=== PATIENT | female | born 1990 | race Caucasian/White ===

== ENCOUNTER 2016-10-30 22:56 | Emergency (ER) | payer BC ==
[2016-10-31] MEDS ORDERED: ONDANSETRON 4 MG TAB.RAPDIS PO ONE (01:06)
[2016-10-31] MEDS ORDERED: HYDROMORPHONE HCL INJ/PF 2 MG/ML AMPULE IM ONE (01:06)
[2016-10-31] MEDS ORDERED: DIPH/PERTUSS(ACELL)/TETANUS VAC/PF 0.5 ML SYR (>=10YO) IM ONE (01:06)
[2016-10-31] MEDS ORDERED: AMOXICILLIN TRIHYDRATE 500 MG CAPSULE PO ONE (01:09)
[2016-10-31] MEDS ORDERED: AMOXICILLIN TR/POT CLAVULANATE 500-125 MG TAB PO ONE (01:09)
--- NOTE | 2016-10-31 01:15 | ER Document Report ---
ED Animal Bite - General Chief Complaint: Dog Bite Stated Complaint: FACIAL INJURY,DOG BITE Notes: Patient is a 26 year old female that comes emergency department for chief complaint of dog bite, patient was interacting with her friends bowl when the dog bit her in the face causing a laceration to the left upper lip extending into the nose and also over the right cheek. Patient is not up-to-date on her tetanus. Dog is reportedly up-to-date on all its shots. TRAVEL OUTSIDE OF THE [place] IN LAST 30 DAYS: No - Related Data Allergies/Adverse Reactions: sulfamethoxazole [From ] Allergy (Verified 11/01/11 15:50) sulfite Allergy (Verified 03/14/16 05:42) trimethoprim [From ] Allergy (Verified 11/01/11 15:50) Past Medical History - General Information source: Patient, Relative - Social History Smoking Status: Never Smoker Frequency of alcohol use: None Lives with: Family Family History: Reviewed & Not Pertinent Patient has suicidal ideation: No Patient has homicidal ideation: No - Medical History Medical History: Negative Renal/ Medical History: Denies: Hx Peritoneal Dialysis Surgical Hx: Negative - Immunizations Immunizations up to date: Yes Hx Diphtheria, Pertussis, Tetanus Vaccination: Yes Review of Systems - Review of Systems Constitutional: No symptoms reported EENT: See HPI Cardiovascular: No symptoms reported Respiratory: No symptoms reported Gastrointestinal: No symptoms reported Genitourinary: No symptoms reported Female Genitourinary: No symptoms reported Musculoskeletal: No symptoms reported Skin: See HPI Hematologic/Lymphatic: No symptoms reported Neurological/Psychological: No symptoms reported Physical Exam - Vital signs Vitals: Temp Pulse Resp BP Pulse Ox 98.6 F 96 17 121/100 H 99 10/30/16 23:04 10/30/16 23:04 10/30/16 23:04 10/30/16 23:04 10/30/16 23:04 Interpretation: Normal - General General appearance: Alert, Anxious In distress: Mild - HEENT Head: Normocephalic, Atraumatic Eyes: Normal Conjunctiva: Normal Extraocular movements intact: Yes Eyelashes: Normal Pupils: PERRL Ears: Normal External canal: Normal Tympanic membrane: Normal Sinus: Normal Mouth/Lips: Other - Large laceration, extending from the top right vermilion border crossing over to the other side of the nose and extending to the septum, full-thickness. Tiny laceration just above the right upper lip. Pharynx: Normal Neck: Normal - Respiratory Respiratory status: No respiratory distress Chest status: Nontender Breath sounds: Normal Chest palpation: Normal - Cardiovascular Rhythm: Regular Heart sounds: Normal auscultation Murmur: No - Abdominal Inspection: Normal Distension: No distension Bowel sounds: Normal Tenderness: Nontender Organomegaly: No organomegaly - Back Back: Normal, Nontender - Extremities General upper extremity: Normal inspection, Nontender, Normal color, Normal ROM , Normal temperature General lower extremity: Normal inspection, Nontender, Normal color, Normal ROM , Normal temperature, Normal weight bearing. No: Jolanta's sign - Neurological Neuro grossly intact: Yes Cognition: Normal Orientation: AAOx4 Marcelina Coma Scale Eye Opening: Spontaneous Marcelina Coma Scale Verbal: Oriented Marcelina Coma Scale Motor: Obeys Commands Marcelina Coma Scale Total: 15 Speech: Normal Motor strength normal: LUE, RUE, LLE, RLE Sensory: Normal - Psychological Associated symptoms: Normal affect, Normal mood - Skin Skin Temperature: Warm Skin Moisture: Dry Skin Color: Normal Skin irregularity: Laceration - Jagged wound over the right zygomatic area about 2 cm in length Course - Re-evaluation Re-evalutation: Concern because of deep upper lip wound extending into the left nasal passage and towards the septum. Patient declines an IV, given Dilaudid, tetanus, Augmentin. Page sent to plastic surgery, Dr. Bear. Dr. Bear called back, spoke to him, sent pictures, he states that he will come to see the patient. Patient given Betadine cleansing twice, wound over right zygomatic area repaired. Dr. Bear in to see the patient, performing the repair. - Vital Signs Vital signs: Temp Pulse Resp BP Pulse Ox 98.6 F 96 17 121/100 H 99 10/30/16 23:04 10/30/16 23:04 10/30/16 23:04 10/30/16 23:04 10/30/16 23:04 Procedures - Laceration/Wound Repair right zygomatic area Wound length (cm): 2 Wound's Depth, Shape: Irregular Laceration pre-procedure: Sterile PPE donned, Sterile drapes applied, Other - Surgical clinic Anesthetic type: Other - l.e.t. Wound explored: Clean, No foreign body removed Irrigated w/ Saline (mLs): 30 Wound Repaired With: Sutures Suture Size/Type: 5:0, Nylon Number of Sutures: 6 Layer Closure?: No Post-procedure wound care: Sterile dressing applied Post-procedure NV exam normal: Yes Complications: No Discharge - Discharge Clinical Impression: Dog bite Qualifiers: Encounter type: initial encounter Qualified Code(s): W54.0XXA - Bitten by dog, initial encounter Facial laceration Qualifiers: Encounter type: initial encounter Qualified Code(s): S01.81XA - Laceration without foreign body of other part of head, initial encounter Condition: Stable Disposition: HOME, SELF-CARE Instructions: Tetanus Immunization Given (OM) Additional Instructions: Your tetanus has been updated. Take Augmentin antibiotic as directed, keep wounds clean, clean gently with soap and water, dab dry, avoid soaking. Chief thin film of antibiotic dressing over the wound. Follow-up with Dr. Bear (call office, see referral). Return to the emergency department for any concerning symptoms including redness , swelling, pus drainage, fever, etc. Prescriptions: Amox Tr/Potassium Clavulanate [Augmentin 875-125 Tablet] 1 tab PO BID 7 Days Oxycodone HCl/Acetaminophen [Percocet 5-325 mg Tablet] 1 - 2 tab PO Q4H PRN #15 tablet PRN Reason: Forms: Return to Work Referrals: LIN BEAR MD [ACTIVE STAFF] - Follow up in 3-5 days
[2016-10-31] MEDS ORDERED: LIDOCAINE 4%/TETRACAINE 0.5%/EPI 0.18% 5 ML TOPICAL SOLN TOP ONE (02:50)
[2016-10-31] MEDS ORDERED: LIDOCAINE 1%/EPINEPHRINE INJ 20 ML VIAL INJ ONE (04:05)
[2016-10-31] MEDS ORDERED: SODIUM BICARBONATE 8.4% INJ 50 MEQ/50 ML DISP.SYRIN IV ONE (04:51)
[2016-10-31 08:18] VITALS: BP 124/79
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
== END 2016-10-31 08:17 | disposition home or self-care (01) ==
LOC: ER 22:56
PROC: 0HQ1XZZ Repair Face Skin, External Approach (ICD-10-PCS; principal; 2016-10-30)
PROC: 0HX1XZZ Transfer Face Skin, External Approach (ICD-10-PCS; 2016-10-30)
PROC: 0CQ0XZZ Repair Upper Lip, External Approach (ICD-10-PCS; 2016-10-30)
DX: S01.511A Laceration without foreign body of lip, initial encounter (principal); S01.21XA Laceration without foreign body of nose, initial encounter; S01.81XA Laceration without foreign body of other part of head, initial encounter; W54.0XXA Bitten by dog, initial encounter; Z23 Encounter for immunization; Z88.3 Allergy status to other anti-infective agents
CPT/HCPCS: 99283; 96372; 90471; 90715; 14060; 12011 ×2; S0119; J3490 ×3; J1170

== ENCOUNTER 2017-11-18 20:59 | Emergency (ER) | payer OTHER, BC ==
[2017-11-18] MEDS ORDERED: KETOROLAC TROMETHAMINE INJ/PF 30 MG/1 ML SDV IV ONE (21:25)
[2017-11-18] MEDS ORDERED: LIDOCAINE 1% INJ-PF (10 MG/ML) 30 ML SDV INJ ONE (21:25)
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
[2017-11-19 00:07] VITALS: BP 116/79
== END 2017-11-19 00:06 | disposition home or self-care (01) ==
LOC: ER 20:59
PROC: 0HQEXZZ Repair Left Lower Arm Skin, External Approach (ICD-10-PCS; principal; 2017-11-18)
DX: S51.022A Laceration with foreign body of left elbow, initial encounter (principal); V43.52XA Car driver injured in collision with other type car in traffic accident, initial encounter; Z88.3 Allergy status to other anti-infective agents
CPT/HCPCS: 99283; 96374; 73080; 12002; J3490; J1885

== ENCOUNTER 2017-11-22 13:19 | Emergency (ER) | payer OTHER, BC ==
[2017-11-22] MEDS ORDERED: OXYCODONE-ACETAMINOPHEN 5-325 MG TABLET PO ONE (14:23)
[2017-11-22] MEDS ORDERED: FENTANYL CITRATE INJ/PF 100 MCG/2 ML AMPUL IV ONE (14:28)
[2017-11-22] MEDS ORDERED: LIDOCAINE 1% INJ-PF (10 MG/ML) 30 ML SDV INJ ONE (14:30)
[2017-11-22] MEDS ORDERED: CLINDAMYCIN 600 MG/D5W RTU 600 MG/50 ML RTUPB IV ONE (14:33)
--- NOTE | 2017-11-22 14:41 | ER Document Report ---
ED Wound - General Chief Complaint: Wound Recheck Stated Complaint: WOUND CHECK Time Seen by Provider: 11/22/17 14:03 Mode of Arrival: Ambulatory Information source: Patient Notes: 27-year-old female presents to ED for wound check on her left arm and elbow. The left arm and elbow is swollen painful and discolored. She states that some of the redness has decreased since yesterday but it is still very painful and draining thick drainage. States there is no way she could go back to work today. TRAVEL OUTSIDE OF THE [place] IN LAST 30 DAYS: No - HPI Patient complains to provider of: Wound infection Occurred: Other - 11/18/2017 Onset/Duration: Sudden, Worse Quality of pain: Pressure, Sharp, Stabbing, Throbbing Severity: Moderate Pain Level: 3 Context: Injury Skin Color: Erythema, Ecchymosis Sensations intact: Yes Associated Symptoms: Drainage, Redness, Swelling - Related Data Allergies/Adverse Reactions: sulfamethoxazole [From Mayra] Allergy (Verified 11/22/17 13:22) sulfite Allergy (Verified 11/22/17 13:22) trimethoprim [From Mayra] Allergy (Verified 11/22/17 13:22) Past Medical History - General Information source: Patient - Social History Smoking Status: Never Smoker Cigarette use (# per day): No Chew tobacco use (# tins/day): No Smoking Education Provided: No Frequency of alcohol use: None Drug Abuse: None Lives with: Family Family History: Reviewed & Not Pertinent Patient has suicidal ideation: No Patient has homicidal ideation: No - Past Medical History Cardiac Medical History: Reports: None Pulmonary Medical History: Reports: None EENT Medical History: Reports: None Neurological Medical History: Reports: None Endocrine Medical History: Reports: None Renal/ Medical History: Reports: None Malignancy Medical History: Reports: None GI Medical History: Reports: None Musculoskeltal Medical History: Reports None Skin Medical History: Reports Hx Cellulitis Psychiatric Medical History: Reports: None Traumatic Medical History: Reports: None Infectious Medical History: Reports: None Surgical Hx: Negative Past Surgical History: Reports: None - Immunizations Immunizations up to date: Yes Hx Diphtheria, Pertussis, Tetanus Vaccination: Yes Review of Systems - Review of Systems Notes: Constitutional: [PRESENT: as per HPI. ABSENT: chills, fever(s), headache(s), weight gain, weight loss] Eyes: [ABSENT: visual disturbances] Ears: [ABSENT: hearing changes] Cardiovascular: [ABSENT: chest pain, dyspnea on exertion, edema, orthropnea, palpitations] Respiratory: [ABSENT: cough, hemoptysis] Gastrointestinal: [ABSENT: abdominal pain, constipation, diarrhea, hematemesis, hematochezia, nausea, vomiting] Genitourinary: [ABSENT: dysuria, hematuria] Musculoskeletal: Painful swollen red left elbow, redness and swelling around the laceration. Integumentary: [ABSENT: rash, wounds] red swollen painful left elbow around the laceration that was sutured on 11/18/2017 Neurological: [ABSENT: abnormal gait, abnormal speech, confusion, dizziness, focal weakness, syncope] Psychiatric: [ABSENT: anxiety, depression, homicidal ideation, suicidal ideation ] Endocrine: [ABSENT: cold intolerance, heat intolerance, menstrual abnormalities , polydipsia, polyuria] Hematologic/Lymphatic: [ABSENT: easy bleeding, easy bruising, lymphadenopathy] Physical Exam - Vital signs Vitals: Temp Pulse Resp BP Pulse Ox 98.8 F 78 14 116/58 L 99 11/22/17 13:30 11/22/17 13:30 11/22/17 13:30 11/22/17 13:30 11/22/17 13:30 - Notes Notes: PHYSICAL EXAMINATION: GENERAL: Well-appearing, well-nourished and in no acute distress. HEAD: Atraumatic, normocephalic. EYES: Pupils equal round and reactive to light, extraocular movements intact, conjunctiva are normal. ENT: Nares patent, oropharynx clear without exudates. Moist mucous membranes. NECK: Normal range of motion, supple without lymphadenopathy LUNGS: Breath sounds clear to auscultation bilaterally and equal. No wheezes rales or rhonchi. HEART: Regular rate and rhythm without murmurs ABDOMEN: Soft, nontender, nondistended abdomen. No guarding, no rebound. No masses appreciated. Female : deferred Musculoskeletal: Swollen red left elbow very tender to touch. NEUROLOGICAL: Cranial nerves grossly intact. Normal speech, normal gait. Normal sensory, motor exams PSYCH: Normal mood, normal affect. SKIN: Erythematous swollen tight skin around the laceration that was sutured on 11/18/2017. Skin extremely tender to touch. Purulent drainage expressed from the suture line. Course - Re-evaluation Re-evalutation: 11/22/17 16:[address] Colunga for the infected laceration. He stated that the last 2 sutures needed to be removed the site needed to be irrigated the patient needed to be given clindamycin IV x-ray needed to be completed and the wound need to be irrigated after wound culture was received. Consulted Dr. Elizondo per Dr. Colunga's request. Dr. Elizondo stated that patient needed to get the antibiotics clindamycin and Rocephin that has already been ordered to the prescription for pain medication and see him in his office first thing in the morning. - Vital Signs Vital signs: Temp Pulse Resp BP Pulse Ox 98.9 F 86 18 121/78 100 11/22/17 17:34 11/22/17 17:34 11/22/17 17:34 11/22/17 17:34 11/22/17 17:34 - Laboratory Result Diagrams: 11/22/17 15:25 Laboratory results interpreted by me: 11/22/17 15:25 WBC 10.6 H RBC 5.36 H RDW 15.8 H - Diagnostic Test Radiology reviewed: Image reviewed, Reports reviewed Discharge - Discharge Clinical Impression: infected left elbow laceration Condition: Stable Disposition: HOME, SELF-CARE Additional Instructions: Infections You have an infection. This is due to bacteria, which can enter through any break in the skin, or even through an irritated hair follicle. Untreated, infections will usually worsen. Antibiotics are required. Usually, warm packs or warm soaks, and elevation of the infected area are recommended. You should start getting better within 24 to 36 hours. Most infections respond quickly to the right medication. Follow-up care is important, however, to check for abscess (boil) formation, unsuspected foreign body, or resistant infection. If you develop fever, chills, or if the area of infection is becoming rapidly more swollen or painful, call the doctor at once. Your x-ray results show multiple radiopaque foreign bodies in your wound to your left elbow. These foreign bodies will need to be removed. I have opened the end of your laceration and removed 2 of the stitches irrigated the area and given you IV Rocephin and clindamycin in the emergency room. I will send you home with prescription for Percocet. You will need to follow-up with orthopedics first thing in the morning to establish a treatment plan for this wound. You need to follow-up. Please do not decide not to follow-up this infection can become a lot worse if not properly treated I.V. ANTIBIOTICS: You have been given an antibiotic by vein. This is done for more serious infections. The IV antibiotics are usually followed by pills. Common side effects of antibiotics include nausea, intestinal cramping, or diarrhea. These are very unusual following a shot. Women may develop vaginal yeast infections, and babies can get yeast ( thrush) in the mouth following the use of antibiotics. Contact your physician if you develop significant side effects from this medication. Allergy to this antibiotic can result in hives, wheezing, faintness, or itching. If symptoms of allergy occur, call the doctor at once. If further IV doses of antibiotic are planned, an IV lock may have been placed in your vein. This provides a way to give periodic IV medications ( without starting a new IV) while you go about your activities. Don't allow the IV site to be bumped. Don't touch the IV needle. If the tape comes loose, apply more tape to secure the IV. Don't get the IV area wet. If bleeding occurs, remove the bandage. If blood is coming from where the plastic needle enters the skin, apply pressure until the bleeding has stopped. If the blood is coming from the IV cap, grasp the cap with one hand and grasp the wide part of the IV needle with the other hand, then gently twist (clockwise ) until the cap is tight. If bleeding continues, return for examination. Call the doctor or come back if you develop chills or fever, or if the IV area becomes swollen, tender, or red. Clindamycin You have been given a prescription for the antibiotic clindamycin. It is often prescribed for infections in the mouth, such as dental infections or abscesses, and for skin infections due to MRSA. It's important that you take all the medication, unless instructed otherwise by your physician. Failure to complete the entire course can result in relapse of your condition. Common side effects of antibiotics include nausea, intestinal cramping, or diarrhea. Women may develop vaginal yeast infections, and babies can get yeast (thrush) in the mouth following the use of antibiotics. Contact your physician if you develop significant side effects from this medication. Allergy to this antibiotic can result in hives, wheezing, faintness, or itching. If symptoms of allergy occur, stop the medication and call the doctor. Rocephin You have been given an injection of an antibiotic called Rocephin ( ceftriaxone). Sometimes the injection must be combined with antibiotic pills. For some infections, such as an uncomplicated ear infection, Rocephin provides all the antibiotic that's needed. The antibiotic will be in your body for about two days. For serious infections, we usually repeat doses of Rocephin daily. Side effects are very unusual following a shot. Women may develop vaginal yeast infections, and babies can get yeast (thrush) in the mouth following the use of antibiotics. Contact your physician if you have symptoms with this medication. Allergy to this antibiotic can result in hives, wheezing, faintness, or itching. If symptoms of allergy occur, call the doctor at once. Oral Narcotic Medication You have been given a prescription for pain control. This medication is a narcotic. It's best taken with food, as nausea can result if taken on an empty stomach. Don't operate machinery or drive within six hours of taking this medication. Do not combine this medicine with alcohol, or with any medication which can cause sedation (such as cold tablets or sleeping pills) unless you get permission from the physician. Narcotics tend to cause constipation. If possible, drink plenty of fluids and eat a diet high in fiber and fruits. FOLLOW-UP CARE: If you have been referred to a physician for follow-up care, call the physician s office for an appointment as you were instructed or within the next two days. If you experience worsening or a significant change in your symptoms, notify the physician immediately or return to the Emergency Department at any time for re-evaluation. Prescriptions: Oxycodone HCl/Acetaminophen [Percocet 5-325 mg Tablet] 1 tab PO Q6HP PRN #15 tablet PRN Reason: Clindamycin HCl 300 mg PO Q6 #28 capsule Forms: Return to Work Referrals: JASMIN ELIZONDO MD [ACTIVE STAFF] - Follow up tomorrow
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
[2017-11-22 15:45] LABS: ABSOLUTE EOSINOPHILS # (AUTO) 0.1 10^3/uL (0.0-0.6); ABSOLUTE MONOCYTES (AUTO) 0.8 10^3/uL (0.1-1.4); ABSOLUTE NEUT (AUTO) 7.7 10^3/uL (1.7-8.2); BASOPHILS % (AUTO) 0.4 % (0-2); EOSINOPHILS % (AUTO) 0.5 % (0-6); HEMATOCRIT 43.8 % (36.0-47.0); HEMOGLOBIN 14.6 g/dL (12.0-15.5); LYMPHOCYTES % (AUTO) 19.2 % (13-45); MEAN CORPUSCULAR HEMOGLOBIN 27.3 pg (27.0-33.4); MEAN CORPUSCULAR HGB CONC 33.4 g/dL (32.0-36.0); MEAN CORPUSCULAR VOLUME 82 fl (80-97); MONOCYTES % (AUTO) 7.7 % (3-13); PLATELET COUNT 274 10^3/uL (150-450); RED BLOOD COUNT 5.36 10^6/uL (3.72-5.28); RED CELL DISTRIBUTION WIDTH 15.8 % (11.5-14.0); SEGMENTED NEUTROPHILS % (AUTO) 72.2 % (42-78); TOTAL CELLS COUNTED % (AUTO) 100 %; WHITE BLOOD COUNT 10.6 10^3/uL (4.0-10.5)
[2017-11-22] MEDS ORDERED: CEFTRIAXONE 1 GM/D5W RTU 1 GM/50 ML RTUPB IV ONE (16:21)
[2017-11-22] MEDS ORDERED: CEFTRIAXONE INJ 1000 MG VIAL IV ONE (16:48)
[2017-11-22 17:43] VITALS: BP 121/78
== END 2017-11-22 17:35 | disposition home or self-care (01) ==
LOC: ER 13:19
DX: S51.012D Laceration without foreign body of left elbow, subsequent encounter (principal); L08.9 Local infection of the skin and subcutaneous tissue, unspecified; V49.9XXD Car occupant (driver) (passenger) injured in unspecified traffic accident, subsequent encounter; Z88.1 Allergy status to other antibiotic agents
CPT/HCPCS: 99283; 96375; 96365; 96367; 36415; 87070; 87205; 85025; 73070; J3010; J3490; J0696

== ENCOUNTER 2018-09-04 14:32 | Emergency (ER) | payer BC, MEDICAID, OTHER ==
--- NOTE | 2018-09-04 16:41 | ER Document Report ---
ED ENT - General Chief Complaint: Cough Stated Complaint: BREATHING DIFFICULTY Time Seen by Provider: 09/04/18 16:02 Mode of Arrival: Ambulatory Information source: Patient Notes: 28-year-old female presented to ED for cough cold congestion x2 days. Patient states her mother told her she had to come to the emergency room to get checked out because she is 10 weeks . Patient states she has been taken Tylenol and Benadryl but did not know anything else that she could take. Patient is alert and oriented respirations regular and unlabored speaking in full sentences walks with a even steady gait. TRAVEL OUTSIDE OF THE [place] IN LAST 30 DAYS: No - HPI Patient complains to provider of: Nose problem Onset: Other - 2 days Onset/Duration: Intermittent Quality of pain: Achy Severity: Mild Pain Level: 1 Context: Recent Illness Location of pain: Nose Associated symptoms: Runny nose, Sinus drainage Similar symptoms previously: Yes Recently seen / treated by doctor: No - Related Data Allergies/Adverse Reactions: sulfamethoxazole [From Mayra] Allergy (Verified 09/04/18 14:34) sulfite Allergy (Verified 09/04/18 14:34) trimethoprim [From Mayra] Allergy (Verified 09/04/18 14:34) Past Medical History - General Information source: Patient - Social History Smoking Status: Former Smoker Cigarette use (# per day): No Chew tobacco use (# tins/day): No Smoking Education Provided: No Frequency of alcohol use: None Drug Abuse: None Occupation: Field Case Manager Lives with: Alone Family History: Reviewed & Not Pertinent Patient has suicidal ideation: No Patient has homicidal ideation: No - Past Medical History Cardiac Medical History: Reports: None Pulmonary Medical History: Reports: None EENT Medical History: Reports: None Neurological Medical History: Reports: None Endocrine Medical History: Reports: None Renal/ Medical History: Reports: None Malignancy Medical History: Reports: None GI Medical History: Reports: None Musculoskeletal Medical History: Reports None Skin Medical History: Reports Hx Cellulitis Psychiatric Medical History: Reports: None Traumatic Medical History: Reports: None Infectious Medical History: Reports: None Surgical Hx: Negative Past Surgical History: Reports: None - Immunizations Immunizations up to date: Yes Hx Diphtheria, Pertussis, Tetanus Vaccination: Yes Review of Systems - Review of Systems Constitutional: No symptoms reported EENT: Nose congestion, Nose discharge, Sinus pressure, Sinus discharge Cardiovascular: No symptoms reported Respiratory: Cough Gastrointestinal: No symptoms reported Genitourinary: No symptoms reported Female Genitourinary: No symptoms reported Musculoskeletal: No symptoms reported Skin: No symptoms reported Hematologic/Lymphatic: No symptoms reported Neurological/Psychological: No symptoms reported -: Yes All other systems reviewed and negative Physical Exam - Vital signs Vitals: Temp Pulse Resp BP Pulse Ox 98.3 F 88 16 121/82 99 09/04/18 15:12 09/04/18 15:12 09/04/18 15:12 09/04/18 15:12 09/04/18 15:12 Interpretation: Normal - General General appearance: Appears well, Alert General appearance pediatric: Attentiveness normal, Good eye contact - HEENT Head: Normocephalic, Atraumatic Eyes: Normal Pupils: PERRL Ears: Normal External canal: Normal Tympanic membrane: Normal Sinus: Normal Nasal: Swelling, Clear rhinorrhea Mouth/Lips: Normal Mucous membranes: Normal Pharynx: Post nasal drainage. No: Erythema, Exudate Neck: Normal - Respiratory Respiratory status: No respiratory distress Chest status: Nontender Breath sounds: Normal Chest palpation: Normal - Cardiovascular Rhythm: Regular Heart sounds: Normal auscultation Murmur: No - Abdominal Inspection: Normal Distension: No distension Bowel sounds: Normal Tenderness: Nontender Organomegaly: No organomegaly - Back Back: Normal, Nontender - Extremities General upper extremity: Normal inspection, Nontender, Normal color, Normal ROM, Normal temperature General lower extremity: Normal inspection, Nontender, Normal color, Normal ROM, Normal temperature, Normal weight bearing. No: Jolanta's sign - Neurological Neuro grossly intact: Yes Cognition: Normal Orientation: AAOx4 [place] Coma Scale Eye Opening: Spontaneous [place] Coma Scale Verbal: Oriented [place] Coma Scale Motor: Obeys Commands Ped Marcelina Coma Scale Eye Opening: Spontaneous Ped Marcelina Coma Scale Verbal: Age appropriate verbal Ped [place] Coma Scale Motor: Spontaneous Movements Speech: Normal Motor strength normal: LUE, RUE, LLE, RLE Sensory: Normal - Psychological Associated symptoms: Normal affect, Normal mood - Skin Skin Temperature: Warm Skin Moisture: Dry Skin Color: Normal Course - Re-evaluation Re-evalutation: 09/04/18 21:39 Care for upper respiratory infection in a patient with patient. Explained to her she could take Benadryl or Claritin but not Sudafed or Zyrtec. Patient was instructed on use of saline nasal spray and salt and soda solution gargles. Patient was instructed to follow-up with her primary doctor and with [employer]. After performing a Medical Screening Examination, I estimate there is LOW risk for ACUTE CORONARY SYNDROME, RESPIRATORY FAILURE, SEPSIS OR MENINGITIS, thus I consider the discharge disposition reasonable. I have reevaluated this patient multiple times and no significant life threatening changes are noted. The patient and I have discussed the diagnosis and risks, and we agree with discharging home with close follow-up. We also discussed returning to the Emergency Department immediately if new or worsening symptoms occur. We have discussed the symptoms which are most concerning (e.g., changing or worsening pain, trouble swallowing or breathing, neck stiffness, fever) that necessitate immediate return. - Vital Signs Vital signs: Temp Pulse Resp BP Pulse Ox 98 F 87 16 105/74 100 09/04/18 16:40 09/04/18 16:40 09/04/18 16:40 09/04/18 16:40 09/04/18 16:40 Discharge - Discharge Clinical Impression: URI (upper respiratory infection) Qualifiers: URI type: unspecified URI Qualified Code(s): J06.9 - Acute upper respiratory infection, unspecified Condition: Stable Disposition: HOME, SELF-CARE Additional Instructions: UPPER RESPIRATORY ILLNESS: You have a viral infection of the respiratory passages -- a "cold." This common infection causes nasal congestion, drainage, and often sore throat and cough. It is highly contagious. The disease usually lasts about 10 to 14 days. There is no "cure" for the viral infection -- it must run its course. If there is a complication, such as bacterial infection in the nose, sinuses, middle ear, or bronchial tubes, antibiotics may be required. The antibiotics won't affect the virus. Drink plenty of fluids. A humidifier may help. An expectorant medication or decongestant may make you more comfortable. Use acetaminophen or ibuprofen for fever or aches. See the doctor if fever persists over two days, if there is any significant worsening of your symptoms, or if you simply fail to improve as expected. COUGH-SUPPRESSANT & EXPECTORANT MEDICATION: You are to use a cough medication as needed for relief of symptoms. This medicine is a combination of an expectorant (to make the mucous thinner and more easily "coughed up") and a cough suppressant (to reduce the frequency of coughing). The cough-suppressant medicine is related to narcotics. You may experience mild nausea and sleepiness. Some patients who are very sensitive to narcotics may have stomach pain from this medicine. Taking the medicine with food reduces these side effects. Do not drive or work with machinery until you know how this medicine affects you. The expectorant should have no side effects. Iodine-containing expectorants (such as organidin) should not be taken by persons with active thyroid disease unless approved by your doctor. Call the doctor if you develop shortness of breath, hives, rash, itching, lightheadedness, or severe nausea and vomiting. You can take Claritin for your cough cold congestion symptoms this is safe in . You cannot take Claritin-D as this has Sudafed which is not safe in . USE OF ACETAMINOPHEN (Tylenol): Acetaminophen may be taken for pain relief or fever control. It's much safer than aspirin, offering a wider range of "safe" dosages. It is safe during . Some brand names are Tylenol, Panadol, Datril, Anacin 3, Tempra, and Liquiprin. Acetaminophen can be repeated every four hours. The following are maximum recommended dosages: >89 pounds or adults 650 mg to 900 mg Acetaminophen can be repeated every four hours. Maximum dose not to exceed 4000 mg a day. Salt and soda solution 1 quart of water 1 tablespoon of salt 1 teaspoon of baking soda Mixed 3 ingredients together and boil for 1 minute Placed in a covered quart jar Use 1/2 ounce of cold solution to gargle 3 times a day FOLLOW-UP CARE: If you have been referred to a physician for follow-up care, call the physicians office for an appointment as you were instructed or within the next two days. If you experience worsening or a significant change in your symptoms, notify the physician immediately or return to the Emergency Department at any time for re-evaluation. Forms: Return to Work Referrals: [facility] [Provider Group] - Follow up as needed
[2018-09-04 16:54] VITALS: BP 105/74
== END 2018-09-04 16:43 | disposition home or self-care (01) ==
LOC: ER 14:32
DX: O99.511 Diseases of the respiratory system complicating pregnancy, first trimester (principal); J06.9 Acute upper respiratory infection, unspecified; J34.89 Other specified disorders of nose and nasal sinuses; O26.891 Other specified pregnancy related conditions, first trimester; R05 Cough; R09.82 Postnasal drip; R09.81 Nasal congestion; Z3A.10 10 weeks gestation of pregnancy; Z87.891 Personal history of nicotine dependence; Z88.1 Allergy status to other antibiotic agents
CPT/HCPCS: 99283

== ENCOUNTER 2019-04-24 20:33 | Inpatient (IN) | payer MEDICAID ==
[2019-04-24] MEDS ORDERED: RINGERS SOLUTION,LACTATED 1,000 ML IV ONE (21:07)
[2019-04-24] MEDS ORDERED: ACETAMINOPHEN 325 MG TABLET PO ONE (21:08)
[2019-04-24 21:10] LABS: ABSOLUTE EOSINOPHILS # (AUTO) 0.1 10^3/uL (0.0-0.6); ABSOLUTE LYMPHOCYTES (AUTO) 1.3 10^3/uL (0.5-4.7); ABSOLUTE MONOCYTES (AUTO) 0.5 10^3/uL (0.1-1.4); ABSOLUTE NEUT (AUTO) 8.7 10^3/uL (1.7-8.2); BASOPHILS % (AUTO) 0.3 % (0-2); EOSINOPHILS % (AUTO) 0.7 % (0-6); HEMATOCRIT 30.9 % (36.0-47.0); HEMOGLOBIN 10.3 g/dL (12.0-15.5); LYMPHOCYTES % (AUTO) 12.3 % (13-45); MEAN CORPUSCULAR HEMOGLOBIN 28.9 pg (27.0-33.4); MEAN CORPUSCULAR HGB CONC 33.3 g/dL (32.0-36.0); MEAN CORPUSCULAR VOLUME 87 fl (80-97); MONOCYTES % (AUTO) 4.9 % (3-13); PLATELET COUNT 311 10^3/uL (150-450); RED BLOOD COUNT 3.56 10^6/uL (3.72-5.28); RED CELL DISTRIBUTION WIDTH 15.7 % (11.5-14.0); SEGMENTED NEUTROPHILS % (AUTO) 81.8 % (42-78); TOTAL CELLS COUNTED % (AUTO) 100 %; WHITE BLOOD COUNT 10.6 10^3/uL (4.0-10.5)
[2019-04-24] MEDS ORDERED: DOXYCYCLINE HYCLATE 100 MG TABLET PO ONE (21:23)
[2019-04-24] MEDS ORDERED: AMPICILLIN SOD/SULBACTAM 3 GM VIAL IV ONE (21:23)
[2019-04-24 21:32] LABS: ANION GAP 12 (5-19); BLOOD UREA NITROGEN 9 mg/dL (7-20); CALCIUM 9.2 mg/dL (8.4-10.2); CARBON DIOXIDE 26 mmol/L (22-30); CHLORIDE 99 mmol/L (98-107); GLUCOSE 113 mg/dL (75-110); POTASSIUM 3.8 mmol/L (3.6-5.0)
--- NOTE | 2019-04-24 21:34 | ER Document Report ---
ED General - General Chief Complaint: Vaginal Bleeding Stated Complaint: VAGINAL BLEEDING Time Seen by Provider: 04/24/19 20:47 Primary Care Provider: DIXON SHIELDS MD [Primary Care Provider] - Follow up as needed Mode of Arrival: Ambulatory Information source: Patient, Relative, [facility] Records Notes: 28-year-old female presents with complaint of vaginal bleeding. Patient delivered on April 15, 2019 here at [facility]. She said it was a prolonged delivery which required vacuum extraction of the baby. She reports that afterwards she did experience significant bleeding which required her to have multiple transfusions. She does report a grade 2 vaginal laceration which was repaired. Patient reports that she has had mild bleeding up until today wh en she began passing large clots and soaking through more than 1 pad per hour. She denies any abdominal pain, dysuria, fever, chills, nausea, vomiting. Patient was unaware that she had a temperature of 103.3 TRAVEL OUTSIDE OF THE [place] IN LAST 30 DAYS: No - HPI Onset: This morning Onset/Duration: Sudden, Worse Quality of pain: Achy Severity: Mild Associated symptoms: Fever. denies: Chest pain, Chills, Nausea, Vomiting, Shortness of breath Exacerbated by: Denies Relieved by: Denies Similar symptoms previously: No Recently seen / treated by doctor: Yes - Related Data Allergies/Adverse Reactions: sulfamethoxazole [From Mayra] Allergy (Verified 04/14/19 12:27) sulfite Allergy (Verified 04/14/19 12:27) trimethoprim [From Mayra] Allergy (Verified 04/14/19 12:27) Past Medical History - General Information source: Patient, Relative, [facility] Records - Social History Smoking Status: Never Smoker Frequency of alcohol use: None Drug Abuse: None Lives with: Family, Spouse/Significant other Family History: Reviewed & Not Pertinent Patient has suicidal ideation: No Patient has homicidal ideation: No - Medical History Medical History: Negative Renal/ Medical History: Denies: Hx Peritoneal Dialysis Skin Medical History: Reports Hx Cellulitis - Immunizations Immunizations up to date: Yes Hx Diphtheria, Pertussis, Tetanus Vaccination: Yes Review of Systems - Review of Systems Notes: REVIEW OF SYSTEMS: CONSTITUTIONAL : Denies fever, chills, or sweats. Denies recent illness. Denies weight loss, + recent hospitalizations. EENT: Denies visual changes, eye pain. Denies sore throat, oral lesions, di fficulty swallowing. CARDIOVASCULAR: Denies chest pain. Denies palpitations. Denies lower extremity edema. RESPIRATORY: Denies cough. Denies shortness of breath, wheezing. GASTROINTESTINAL: Denies abdominal distention. Denies nausea, vomiting, or diarrhea. Denies blood in vomitus, stools, or per rectum. Denies black, tarry stools. Denies constipation. GENITOURINARY: Denies difficulty urinating, painful urination, frequency, blood in urine, or vaginal discharge. MUSCULOSKELETAL: Denies back or neck pain or stiffness. Denies joint pain or swelling. SKIN: Denies rash, lesions or sores. HEMATOLOGIC : Denies easy bruising or bleeding. LYMPHATIC: Denies swollen glands. NEUROLOGICAL: Denies confusion or altered mental status. Denies loss of consciousness. Denies dizziness or lightheadedness. Denies headache. Denies weakness or paralysis. Denies problems difficulty with ambulation, slurred speech. Denies sensory loss, numbness, or tingling. Denies seizures. PSYCHIATRIC: Denies anxiety or stress. Denies depression, suicidal ideation, or homicidal ideation. Denies visual or auditory hallucinations. Physical Exam - Vital signs Vitals: Temp Pulse Resp BP 100.3 F 138 H 20 128/81 H 04/24/19 20:39 04/24/19 20:39 04/24/19 20:39 04/24/19 20:39 - Notes Notes: PHYSICAL EXAMINATION: GENERAL: Well-appearing, well-nourished and in no acute distress. HEAD: Atraumatic, normocephalic. EYES: Pupils equal round and reactive to light, extraocular movements intact, conjunctiva are normal. ENT: Nares patent, oropharynx clear without exudates. Moist mucous membranes. NECK: Normal range of motion, supple without lymphadenopathy LUNGS: Breath sounds clear to auscultation bilaterally and equal. No wheezes rales or rhonchi. HEART: Regular rate and rhythm without murmurs ABDOMEN: Soft, nontender, nondistended abdomen. No guarding, no rebound. No masses appreciated. Female : Musculoskeletal: Normal range of motion, no pitting or edema. No cyanosis. NEUROLOGICAL: Cranial nerves grossly intact. Normal speech, normal gait. Normal sensory, motor exams PSYCH: Normal mood, normal affect. SKIN: Warm, Dry, normal turgor, no rashes or lesions noted. Course - Re-evaluation Re-evalutation: 04/24/19 22:24 Laboratory 04/24/19 04/24/19 20:49 20:49 WBC 10.6 H RBC 3.56 L Hgb 10.3 L Hct 30.9 L MCV 87 MCH 28.9 MCHC 33.3 RDW 15.7 H Plt Count 311 Seg Neutrophils % 81.8 H Lymphocytes % 12.3 L Monocytes % 4.9 Eosinophils % 0.7 Basophils % 0.3 Absolute Neutrophils 8.7 H Absolute Lymphocytes 1.3 Absolute Monocytes 0.5 Absolute Eosinophils 0.1 Absolute Basophils 0.0 Sodium 137.1 Potassium 3.8 Chloride 99 Carbon Dioxide 26 Anion Gap 12 BUN 9 Creatinine 0.73 Est GFR ( Amer) > 60 Est GFR (Non-Af Amer) > 60 Glucose 113 H Calcium 9.2 Pelvis Ultrasound 04/24/19 20:48 IMPRESSION: 1. Thickening and heterogeneity within the endometrium measuring 3.1 cm in greatest dimension. There are foci of possible calcification as well as dirty shadowing which could represent air. There is also increased vascularity. Differential considerations include retained products of conception versus endometritis. Temp Pulse Resp BP Pulse Ox 103.3 F H 138 H 20 128/81 H 04/24/19 21:17 04/24/19 20:39 04/24/19 20:39 04/24/19 20:39 04/24/19 22:31 28-year-old female presents with heavy vaginal bleeding that started this morning. She states that she had a vaginal delivery here at [facility] on April 15, 2019. At that time patient also suffered significant blood loss which required blood transfusions. She states since being home she has had mild bleeding until this morning when she started to pass large clots. She denies knowing that she had a fever of 103. She has no significant abdominal pain nausea or vomiting. She does not appear toxic or dehydrated. She is in no acute distress. CBC shows a mild leukocytosis and a stable anemia. CMP is without electrolyte abnormality. Pelvic ultrasound was obtained and concerning for retained products of conception versus endometritis. Patient was given IV fluids, Unasyn, Tylenol. On reevaluation she is resting comfortably and declines any further pain medication. Urinalysis is pending as well gonorrhea and chlamydia. Urine and blood cultures are pending. I did speak to Dr. Kraft who agrees the patient will require admission. Patient is agreeable to this. - Vital Signs Vital signs: Temp Pulse Resp BP Pulse Ox 103.3 F H 138 H 20 128/81 H 04/24/19 21:17 04/24/19 20:39 04/24/19 20:39 04/24/19 20:39 - Laboratory Result Diagrams: 04/24/19 20:49 04/24/19 20:49 Laboratory results interpreted by me: 04/24/19 04/24/19 20:49 20:49 WBC 10.6 H RBC 3.56 L Hgb 10.3 L Hct 30.9 L RDW 15.7 H Seg Neutrophils % 81.8 H Lymphocytes % 12.3 L Absolute Neutrophils 8.7 H Glucose 113 H - Diagnostic Test Radiology reviewed: Image reviewed, Reports reviewed Discharge - Discharge Clinical Impression: Endometritis, Vaginal bleeding Fever Qualifiers: Fever type: unspecified Qualified Code(s): R50.9 - Fever, unspecified Condition: Good Disposition: ADMITTED INPATIENT Admitting Provider: [facility] Unit Admitted: Post Referrals: DIXON SHIELDS MD [Primary Care Provider] - Follow up as needed
--- NOTE | 2019-04-24 22:10 | RADIOLOGY REPORT (SQ) ---
EXAM DESCRIPTION: US PELVIS COMPLETED DATE/TME: 04/24/2019 20:48 CLINICAL HISTORY: 28 years Female, post heavy bleeding and pain COMPARISON: None. TECHNIQUE: Complete pelvic ultrasound with transabdominal imaging. FINDINGS: Uterus: The uterus measures 12.5 x 8.9 x 9.8 cm. Cervical length of 3.0 cm. Endometrium: There is a heterogeneous predominantly hypoechoic solid appearing area of heterogeneity that has small intermittent foci of high density that produce both clean and dirty posterior shadowing. Shadowing may be caused by calcification however air could also produce this appearance. This region measures approximately 3.1 x 2.6 x 2.7 cm with increased vascularity. Right ovary: Right ovary measures 2.6 x 1.5 x 2.9 cm. Left ovary: The left ovary measures 3.3 x 1.9 x 1.3 cm. Adnexa: No large adnexal masses. Free fluid: No free pelvic fluid. Duplex imaging: Color and spectral Doppler imaging demonstrates blood flow within the ovaries bilaterally. IMPRESSION: 1. Thickening and heterogeneity within the endometrium measuring 3.1 cm in greatest dimension. There are foci of possible calcification as well as dirty shadowing which could represent air. There is also increased vascularity. Differential considerations include retained products of conception versus endometritis.
--- NOTE | 2019-04-24 22:28 | PDOC H&P ---
History of Present Illness Admission Date/PCP: DIXON SHIELDS MD Patient complains of: abdominal pain and vaginal bleeding History of Present Illness: FLACO GROVES is a 28 year old female who had vaginal delivery on 04/15/2019 here and 2nd degree laceration (per notes membranes only ruptured 10 hours. She was GBS negative. Apparently she had a hemorrhage with symptomatic anemia pp and was given 3 units of PRBCs. She denies any other complications. She reports that she was doing well until today when significant increase in bleeding. She is breast feeding and pumping and was not engorged at the time of exam or fever. Past Medical History Gynecological Infection: No Baby 1 Delivery: Spontaneous Vaginal Delivery Medical History: None Cardiac Medical History: Reports: None Pulmonary Medical History: Reports: None EENT Medical History: Reports: None Neurological Medical History: Reports: None Endocrine Medical History: Reports: None Renal/ Medical History: Reports: None Malignancy Medical History: Reports: None GI Medical History: Reports: None Musculoskeltal Medical History: Reports: None Skin Medical History: Reports: None Psychiatric Medical History: Reports: None Traumatic Medical History: Reports: None Infectious Medical History: Reports: None Past Surgical History Past Surgical History: Reports: None Social History Lives with: Family, Spouse/Significant other Smoking Status: Never Smoker - Advance Directive Resuscitation Status: Full Code Family History Family History: Reviewed & Not Pertinent Parental Family History Reviewed: No Children Family History Reviewed: NA Sibling(s) Family History Reviewed.: NA Medication/Allergy Home Medications: Acetaminophen with Codeine [Tylenol #3 Tablet] 1 each PO Q4HP PRN #20 tablet 04/17/19 Docusate Sodium [Colace 100 mg Capsule] 100 mg PO BID capsule 04/17/19 Ferrous Sulfate [Feosol 325 mg Tablet] 325 mg PO BID #60 tablet 04/17/19 Vit/Dha [ Multi + Dha Capsule] 1 cap PO DAILY capsule 04/17/19 Allergies/Adverse Reactions: sulfamethoxazole [From ] Allergy (Verified 04/14/19 12:27) sulfite Allergy (Verified 04/14/19 12:27) trimethoprim [From Mayra] Allergy (Verified 04/14/19 12:27) Review of Systems Constitutional: ABSENT: chills, fever(s), headache(s), weight gain, weight loss Cardiovascular: ABSENT: chest pain, dyspnea on exertion, edema, orthropnea, palpitations Respiratory: ABSENT: cough, hemoptysis Genitourinary: ABSENT: dysuria, hematuria Neurological: ABSENT: abnormal gait, abnormal speech, confusion, dizziness, focal weakness, syncope Physical Exam - Physical Exam Vital Signs: Temp Pulse Resp BP Pulse Ox 103.3 F H 138 H 20 128/81 H 04/24/19 21:17 04/24/19 20:39 04/24/19 20:39 04/24/19 20:39 Intake & Output 04/23/19 04/24/19 04/25/19 06:59 06:59 06:59 Weight 66.2 kg General appearance: PRESENT: no acute distress, well-developed, well-nourished Head exam: PRESENT: atraumatic, normocephalic Respiratory exam: PRESENT: clear to auscultation aldair, symmetrical, unlabored Cardiovascular exam: PRESENT: RRR. ABSENT: diastolic murmur, rubs, systolic murmur GI/Abdominal exam: PRESENT: normal bowel sounds, soft, other - approp ttp pp from recent delivery. ABSENT: distended, guarding, mass, organolmegaly, rebound, tenderness Rectal exam: PRESENT: deferred Extremities exam: PRESENT: full ROM. ABSENT: calf tenderness, clubbing, pedal edema Neurological exam: PRESENT: alert, awake, oriented to person, oriented to place, oriented to time, oriented to situation, CN II-XII grossly intact. ABSENT: motor sensory deficit Psychiatric exam: PRESENT: appropriate affect, normal mood. ABSENT: homicidal ideation, suicidal ideation Skin exam: PRESENT: dry, intact, warm. ABSENT: cyanosis, rash Result Laboratory Results: 04/24/19 20:49 04/24/19 20:49 04/24/19 04/24/19 20:49 20:49 WBC 10.6 H RBC 3.56 L Hgb 10.3 L Hct 30.9 L MCV 87 MCH 28.9 MCHC 33.3 RDW 15.7 H Plt Count 311 Seg Neutrophils % 81.8 H Lymphocytes % 12.3 L Monocytes % 4.9 Eosinophils % 0.7 Basophils % 0.3 Absolute Neutrophils 8.7 H Absolute Lymphocytes 1.3 Absolute Monocytes 0.5 Absolute Eosinophils 0.1 Absolute Basophils 0.0 Sodium 137.1 Potassium 3.8 Chloride 99 Carbon Dioxide 26 Anion Gap 12 BUN 9 Creatinine 0.73 Est GFR ( Amer) > 60 Est GFR (Non-Af Amer) > 60 Glucose 113 H Calcium 9.2 Impressions: Pelvis Ultrasound 04/24/19 20:48 IMPRESSION: 1. Thickening and heterogeneity within the endometrium measuring 3.1 cm in greatest dimension. There are foci of possible calcification as well as dirty shadowing which could represent air. There is also increased vascularity. Differential considerations include retained products of conception versus endometritis. Status: Imported from PACS Assessment & Plan - Diagnosis (1) endometritis Is this a current diagnosis for this admission?: Yes Plan: likely increase in bleeding today is from placental site involution. However, patient has a leukocytosis and fever 103.3 She is well appearing and does not appear septic. Unasyn ordered. Discharge after 24-48hours on abx based on clinical well being. - Time Time Spent: 30 to 50 Minutes Medications reviewed and adjusted accordingly: Yes Anticipated discharge: Home Within: within 48 hours - Inpatient Certification Based on my medical assessment, after consideration of the patient's comorbidities, presenting symptoms, or acuity I expect that the services needed warrant INPATIENT care.: Yes I certify that my determination is in accordance with my understanding of Medicare's requirements for reasonable and necessary INPATIENT services [42 CFR 412.3e].: Yes Medical Necessity: Need for IV Antibiotics
[2019-04-25] MEDS ORDERED: AMPICILLIN SOD/SULBACTAM 3 GM VIAL IV PRN
[2019-04-25 01:51] LABS: CHLAM PCR NOT DETECTED (NOT DETECT)
[2019-04-25] MEDS: AMPICILLIN SODIUM/SULBACTAM NA 3 GM in NORMAL SALINE 100 ML IV SCH ×4 (02:14→23:12)
[2019-04-25 07:32] LABS: ABSOLUTE EOSINOPHILS # (AUTO) 0.1 10^3/uL (0.0-0.6); ABSOLUTE LYMPHOCYTES (AUTO) 1.4 10^3/uL (0.5-4.7); ABSOLUTE MONOCYTES (AUTO) 0.6 10^3/uL (0.1-1.4); ABSOLUTE NEUT (AUTO) 5.8 10^3/uL (1.7-8.2); BASOPHILS % (AUTO) 0.3 % (0-2); EOSINOPHILS % (AUTO) 0.8 % (0-6); HEMATOCRIT 26.4 % (36.0-47.0); HEMOGLOBIN 8.9 g/dL (12.0-15.5); LYMPHOCYTES % (AUTO) 17.4 % (13-45); MEAN CORPUSCULAR HGB CONC 33.8 g/dL (32.0-36.0); MEAN CORPUSCULAR VOLUME 86 fl (80-97); MONOCYTES % (AUTO) 7.7 % (3-13); PLATELET COUNT 226 10^3/uL (150-450); RED BLOOD COUNT 3.08 10^6/uL (3.72-5.28); RED CELL DISTRIBUTION WIDTH 15.2 % (11.5-14.0); SEGMENTED NEUTROPHILS % (AUTO) 73.8 % (42-78); TOTAL CELLS COUNTED % (AUTO) 100 %; WHITE BLOOD COUNT 7.9 10^3/uL (4.0-10.5)
--- NOTE | 2019-04-25 08:59 | PDOC PROGRESS REPORT ---
Subjective Progress Note for:: 04/25/19 Subjective:: pt states she feels tired Reason For Visit: FEVER, ENDOMETRITIS, VAGINAL BLEEDING Physical Exam - Physical Exam Vital Signs: Temp Pulse Resp BP Pulse Ox 99.2 F 88 16 125/73 100 04/25/19 07:47 04/25/19 07:47 04/25/19 07:47 04/25/19 07:47 04/25/19 07:47 Intake & Output 04/24/19 04/25/19 04/26/19 06:59 06:59 06:59 Weight 66.2 kg General appearance: PRESENT: no acute distress GI/Abdominal exam: PRESENT: soft Result Laboratory Results: 04/25/19 07:05 04/24/19 20:49 04/24/19 04/24/19 04/24/19 20:49 20:49 20:49 WBC 10.6 H RBC 3.56 L Hgb 10.3 L Hct 30.9 L MCV 87 MCH 28.9 MCHC 33.3 RDW 15.7 H Plt Count 311 Seg Neutrophils % 81.8 H Lymphocytes % 12.3 L Monocytes % 4.9 Eosinophils % 0.7 Basophils % 0.3 Absolute Neutrophils 8.7 H Absolute Lymphocytes 1.3 Absolute Monocytes 0.5 Absolute Eosinophils 0.1 Absolute Basophils 0.0 Sodium 137.1 Potassium 3.8 Chloride 99 Carbon Dioxide 26 Anion Gap 12 BUN 9 Creatinine 0.73 Est GFR ( Amer) > 60 Est GFR (Non-Af Amer) > 60 Glucose 113 H Calcium 9.2 Blood Type O NEGATIVE Antibody Screen POSITIVE 04/25/19 07:05 WBC 7.9 RBC 3.08 L Hgb 8.9 L Hct 26.4 L MCV 86 MCH 29.0 MCHC 33.8 RDW 15.2 H Plt Count 226 Seg Neutrophils % 73.8 Lymphocytes % 17.4 Monocytes % 7.7 Eosinophils % 0.8 Basophils % 0.3 Absolute Neutrophils 5.8 Absolute Lymphocytes 1.4 Absolute Monocytes 0.6 Absolute Eosinophils 0.1 Absolute Basophils 0.0 Sodium Potassium Chloride Carbon Dioxide Anion Gap BUN Creatinine Est GFR ( Amer) Est GFR (Non-Af Amer) Glucose Calcium Blood Type Antibody Screen Impressions: Pelvis Ultrasound 04/24/19 20:48 IMPRESSION: 1. Thickening and heterogeneity within the endometrium measuring 3.1 cm in greatest dimension. There are foci of possible calcification as well as dirty shadowing which could represent air. There is also increased vascularity. Differential considerations include retained products of conception versus endometritis. Assessment & Plan - Diagnosis (1) Fever Qualifiers: Fever type: unspecified Qualified Code(s): R50.9 - Fever, unspecified Is this a current diagnosis for this admission?: Yes (2) endometritis Is this a current diagnosis for this admission?: Yes (3) Vaginal bleeding Is this a current diagnosis for this admission?: Yes - Plan Summary Plan Summary: pt is improved continue IV antibiotics for 24 hours post elevated temp. then d/c
[2019-04-25] MEDS ORDERED: ACETAMINOPHEN 325 MG TABLET PO PRN (09:00)
[2019-04-26 06:39] LABS: ABSOLUTE EOSINOPHILS # (AUTO) 0.1 10^3/uL (0.0-0.6); ABSOLUTE LYMPHOCYTES (AUTO) 1.2 10^3/uL (0.5-4.7); ABSOLUTE MONOCYTES (AUTO) 0.6 10^3/uL (0.1-1.4); ABSOLUTE NEUT (AUTO) 4.7 10^3/uL (1.7-8.2); BASOPHILS % (AUTO) 0.3 % (0-2); HEMATOCRIT 24.4 % (36.0-47.0); HEMOGLOBIN 8.4 g/dL (12.0-15.5); LYMPHOCYTES % (AUTO) 18.9 % (13-45); MEAN CORPUSCULAR HEMOGLOBIN 29.3 pg (27.0-33.4); MEAN CORPUSCULAR HGB CONC 34.4 g/dL (32.0-36.0); MEAN CORPUSCULAR VOLUME 85 fl (80-97); MONOCYTES % (AUTO) 8.5 % (3-13); PLATELET COUNT 230 10^3/uL (150-450); RED BLOOD COUNT 2.86 10^6/uL (3.72-5.28); RED CELL DISTRIBUTION WIDTH 15.7 % (11.5-14.0); SEGMENTED NEUTROPHILS % (AUTO) 71.3 % (42-78); TOTAL CELLS COUNTED % (AUTO) 100 %; WHITE BLOOD COUNT 6.5 10^3/uL (4.0-10.5)
[2019-04-26] MEDS: AMPICILLIN SODIUM/SULBACTAM NA 3 GM in NORMAL SALINE 100 ML IV SCH ×3 (07:44→14:40)
[2019-04-26 15:21] VITALS: BP 109/59
--- NOTE | 2019-04-26 18:35 | PDOC PROGRESS REPORT ---
Subjective Progress Note for:: 04/26/19 Subjective:: Pt denies any fevers, chills, SOB or CP. Pt denies excess bleeding and lochia has greatly improved since starting antibiotics. Pt denies any uterine tenderness and rates pain 0-1/10. Pt is tolerating regular diet, OOB voiding and ambulating. Pt continues to breastfeed and pump breast milk. Reason For Visit: FEVER, ENDOMETRITIS, VAGINAL BLEEDING Physical Exam - Physical Exam Vital Signs: Temp Pulse Resp BP Pulse Ox 98.0 F 78 16 109/59 L 100 04/26/19 17:14 04/26/19 17:14 04/26/19 17:14 04/26/19 17:14 04/26/19 17:14 Intake & Output 04/25/19 04/26/19 04/27/19 06:59 06:59 06:59 Intake Total 1000 880 Balance 1000 880 Weight 66.2 kg 70.4 kg General appearance: PRESENT: no acute distress, cooperative Head exam: PRESENT: atraumatic, normocephalic Eye exam: PRESENT: EOMI Mouth exam: PRESENT: moist Neck exam: PRESENT: full ROM Pulses: PRESENT: normal dorsalis pedis pul GI/Abdominal exam: PRESENT: normal bowel sounds, soft - not tender to palpation Extremities exam: PRESENT: other - negative swelling and negative homans Neurological exam: PRESENT: awake, oriented to person, oriented to place, oriented to time, oriented to situation Skin exam: PRESENT: intact, normal color, warm Result Laboratory Results: 04/26/19 05:56 04/24/19 20:49 04/26/19 05:56 WBC 6.5 RBC 2.86 L Hgb 8.4 L Hct 24.4 L MCV 85 MCH 29.3 MCHC 34.4 RDW 15.7 H Plt Count 230 Seg Neutrophils % 71.3 Lymphocytes % 18.9 Monocytes % 8.5 Eosinophils % 1.0 Basophils % 0.3 Absolute Neutrophils 4.7 Absolute Lymphocytes 1.2 Absolute Monocytes 0.6 Absolute Eosinophils 0.1 Absolute Basophils 0.0 Impressions: Pelvis Ultrasound 04/24/19 20:48 IMPRESSION: 1. Thickening and heterogeneity within the endometrium measuring 3.1 cm in greatest dimension. There are foci of possible calcification as well as dirty shadowing which could represent air. There is also increased vascularity. Differential considerations include retained products of conception versus endometritis. Assessment & Plan - Diagnosis (1) Fever Qualifiers: Fever type: unspecified Qualified Code(s): R50.9 - Fever, unspecified Is this a current diagnosis for this admission?: Yes (2) endometritis Is this a current diagnosis for this admission?: Yes - Plan Summary Plan Summary: Pt desires discharge home No further uterine tenderness instructions given Bleeding precautions given Infection precautions given Thrombotic precautions given blues/depression precautions given Dr. Hernandez to send in prescriptions tomorrow for extended antibiotics
--- NOTE | 2019-04-27 09:45 | PDOC DISCHARGE SUMMARY ---
General - Admit/Disc Date/PCP Admission Date/Primary Care Provider: 04/24/19 22:41 DEBRA HAND MD Discharge Date: 04/26/19 - Discharge Diagnosis (1) Fever Is this a current diagnosis for this admission?: Yes (2) endometritis Is this a current diagnosis for this admission?: Yes (3) Vaginal bleeding Is this a current diagnosis for this admission?: Yes - Additional Information Resuscitation Status: Full Code Discharge Diet: Regular Discharge Activity: Balance Activity w/Rest, Pelvic Rest - follow up in office or as needed, No tub bath Home Medications: Docusate Sodium [Colace 100 mg Capsule] 100 mg PO DAILY 04/25/19 Ferrous Sulfate [Feosol 325 mg Tablet] 325 mg PO DAILY 04/25/19 Ibuprofen [Motrin 800 mg Tablet] 800 mg PO TIDP PRN 04/25/19 Vit 87/Iron/Folic/Dha [Prenate Mini Softgel] 1 cap PO DAILY 04/25/19 History of Present Illness Patient complains of: pt c/o pain in lower abdomen and bleeding post History of Present Illness: FLACO GROVES is a 28 year old female Hospital Course Hospital Course: pt placed on IV antibiotics and bleeding has slowed and abdominal pain is improved Physical Exam - Physical Exam Vital Signs: Temp Pulse Resp BP Pulse Ox 98.0 F 78 16 109/59 L 100 04/26/19 17:14 04/26/19 17:14 04/26/19 17:14 04/26/19 17:14 04/26/19 17:14 Intake & Output 04/26/19 04/27/19 04/28/19 06:59 06:59 06:59 Intake Total 1000 1360 Balance 1000 1360 Weight 70.4 kg General appearance: PRESENT: no acute distress GI/Abdominal exam: PRESENT: soft - Gynecological Exam Uterus: normal Result Laboratory Results: 04/26/19 05:56 04/24/19 20:49 Impressions: Pelvis Ultrasound 04/24/19 20:48 IMPRESSION: 1. Thickening and heterogeneity within the endometrium measuring 3.1 cm in greatest dimension. There are foci of possible calcification as well as dirty shadowing which could represent air. There is also increased vascularity. Differential considerations include retained products of conception versus endometritis. Plan Discharge Plan: dc/ folow up in office Time Spent: Less than 30 Minutes Acute Heart Failure - Is this a Heart Failure Patient?: No
== END 2019-04-26 18:00 | disposition home or self-care (01) | DRG 776 ==
LOC: ER 20:33 → EH 22:41 → 2N 23:39
PROVIDERS: ADMIT Student in an Organized Health Care Education/Training Program; ATTEND Student in an Organized Health Care Education/Training Program
DX: O86.12 Endometritis following delivery (principal); O72.2 Delayed and secondary postpartum hemorrhage; O90.81 Anemia of the puerperium; D64.9 Anemia, unspecified; Z88.8 Allergy status to other drugs, medicaments and biological substances
CPT/HCPCS: 36415; 76856; 80048; 85025; 86850; 86870; 86900; 86901; 87040; 87086; 87491; 87591; 93976; 96365; 99285; J0295; J7050; J7120

== ENCOUNTER 2020-06-18 13:33 | Emergency (ER) | payer MEDICAID ==
[2020-06-18 13:53] VITALS: BP 118/63
--- NOTE | 2020-06-18 14:32 | ER Document Report ---
ED Medical Screen (RME) - General Chief Complaint: Abdominal Pain Stated Complaint: LOWER ABDOMINAL PAIN Time Seen by Provider: 06/18/20 14:28 Primary Care Provider: DEBRA HAND MD [Primary Care Provider] - Follow up as needed Notes: Patient presents complaining supraumbilical tenderness. Patient states she had a palpable lump there. Patient reports nausea vomiting yesterday. Patient denies any vomiting today. No fever. I have greeted and performed a rapid initial assessment of this patient. A comprehensive ED assessment and evaluation of the patient, analysis of test results and completion of the medical decision making process will be conducted by additional ED providers. TRAVEL OUTSIDE OF THE [place] IN LAST 30 DAYS: No - Related Data Allergies/Adverse Reactions: sulfamethoxazole [From ] Allergy (Verified 04/14/19 12:27) sulfite Allergy (Verified 04/14/19 12:27) trimethoprim [From ] Allergy (Verified 04/14/19 12:27) Past Medical History Renal/ Medical History: Denies: Hx Peritoneal Dialysis Skin Medical History: Reports Hx Cellulitis - Immunizations Immunizations up to date: Yes Hx Diphtheria, Pertussis, Tetanus Vaccination: Yes Physical Exam - Vital signs Vitals: Temp Pulse Resp BP Pulse Ox 98.2 F 70 16 118/63 99 06/18/20 13:52 06/18/20 13:52 06/18/20 13:52 06/18/20 13:52 06/18/20 13:52 - Abdominal Tenderness: Tender - Supraumbilical tenderness, small bulge appreciated while patient standing in triage Course - Re-evaluation Re-evalutation: 06/18/20 14:32 Discussed with patient possibility of hernia although given her vomiting symptoms labs will be ordered at this time. - Vital Signs Vital signs: Temp Pulse Resp BP Pulse Ox 98.2 F 70 16 118/63 99 06/18/20 13:52 06/18/20 13:52 06/18/20 13:52 06/18/20 13:52 06/18/20 13:52 Doctor's Discharge - Discharge Referrals: DEBRA HAND MD [Primary Care Provider] - Follow up as needed
[2020-06-18 15:08] LABS: ABSOLUTE EOSINOPHILS # (AUTO) 0.1 10^3/uL (0.0-0.6); ABSOLUTE LYMPHOCYTES (AUTO) 2.1 10^3/uL (0.5-4.7); ABSOLUTE MONOCYTES (AUTO) 0.6 10^3/uL (0.1-1.4); ABSOLUTE NEUT (AUTO) 4.1 10^3/uL (1.7-8.2); BASOPHILS % (AUTO) 0.5 % (0-2); HEMATOCRIT 35.7 % (36.0-47.0); HEMOGLOBIN 11.9 g/dL (12.0-15.5); LYMPHOCYTES % (AUTO) 30.4 % (13-45); MEAN CORPUSCULAR HEMOGLOBIN 23.8 pg (27.0-33.4); MEAN CORPUSCULAR HGB CONC 33.2 g/dL (32.0-36.0); MEAN CORPUSCULAR VOLUME 72 fl (80-97); MONOCYTES % (AUTO) 9.1 % (3-13); PLATELET COUNT 192 10^3/uL (150-450); RED BLOOD COUNT 4.99 10^6/uL (3.72-5.28); RED CELL DISTRIBUTION WIDTH 21.8 % (11.5-14.0); TOTAL CELLS COUNTED % (AUTO) 100 %
[2020-06-18 15:27] LABS: ALBUMIN 4.4 g/dL (3.5-5.0); ALKALINE PHOSPHATASE 61 U/L (38-126); ANION GAP 8 (5-19); ASPARTATE AMINO TRANSFERASE 21 U/L (14-36); BILIRUBIN,DIRECT 0.3 mg/dL (0.0-0.4); BILIRUBIN,TOTAL 0.3 mg/dL (0.2-1.3); BLOOD UREA NITROGEN 12 mg/dL (7-20); CALCIUM 9.1 mg/dL (8.4-10.2); CARBON DIOXIDE 29 mmol/L (22-30); CHLORIDE 101 mmol/L (98-107); GLUCOSE 92 mg/dL (75-110); NEONATAL BILIRUBIN RESULT 0.1 mg/dL (0.1-1.1); POTASSIUM 4.9 mmol/L (3.6-5.0); TOTAL PROTEIN 7.3 g/dL (6.3-8.2)
--- NOTE | 2020-06-18 16:24 | ER Document Report ---
ED GI/ - General Chief Complaint: Abdominal Pain Stated Complaint: LOWER ABDOMINAL PAIN Time Seen by Provider: 06/18/20 14:28 Primary Care Provider: [facility] [Provider Group] - Follow up in 1 week DEBRA HAND MD [Primary Care Provider] - Follow up as needed Mode of Arrival: Ambulatory Information source: Patient Notes: Patient presents complaining of abdominal tenderness with a palpable bulge to the periumbilical area since yesterday. TRAVEL OUTSIDE OF THE [place] IN LAST 30 DAYS: No - HPI Patient complains to provider of: Abdominal pain, Vomiting Onset: Yesterday Timing/Duration: Gradual Quality of pain: Achy Pain Level: 4 Location: Other - Supraumbilical area Vaginal bleeding (Compared to normal period): None Menstrual period history: denies: Associated symptoms: Nausea, Vomiting. denies: Diarrhea, Dysuria, Fever, Urinary hesitancy, Urinary frequency, Urinary retention, Urinary urgency Exacerbated by: Denies Relieved by: Denies Similar symptoms previously: No Recently seen / treated by doctor: No - Related Data Allergies/Adverse Reactions: sulfamethoxazole [From Septra] Allergy (Verified 04/14/19 12:27) sulfite Allergy (Verified 04/14/19 12:27) trimethoprim [From Septra] Allergy (Verified 04/14/19 12:27) Past Medical History - General Information source: Patient - Social History Smoking Status: Never Smoker Frequency of alcohol use: None Drug Abuse: None Occupation: Foodservice Family History: Reviewed & Not Pertinent - Medical History Medical History: Negative Renal/ Medical History: Denies: Hx Peritoneal Dialysis Skin Medical History: Reports Hx Cellulitis Past Surgical History: Reports: Other - facial - Immunizations Immunizations up to date: Yes Hx Diphtheria, Pertussis, Tetanus Vaccination: Yes Review of Systems - Review of Systems Constitutional: No symptoms reported. denies: Fever, Recent illness EENT: No symptoms reported Cardiovascular: No symptoms reported. denies: Chest pain Respiratory: No symptoms reported. denies: Cough, Short of breath Gastrointestinal: Abdominal pain, Nausea, Vomiting. denies: Diarrhea Genitourinary: No symptoms reported. denies: Dysuria Female Genitourinary: No symptoms reported. denies: Musculoskeletal: No symptoms reported. denies: Back pain Skin: No symptoms reported Hematologic/Lymphatic: No symptoms reported Neurological/Psychological: No symptoms reported Physical Exam - Vital signs Vitals: Temp Pulse Resp BP Pulse Ox 98.2 F 70 16 118/63 99 06/18/20 13:52 06/18/20 13:52 06/18/20 13:52 06/18/20 13:52 06/18/20 13:52 - Notes Notes: PHYSICAL EXAMINATION: GENERAL: Well-appearing and in no acute distress. HEAD: Atraumatic, normocephalic. EYES: sclera anicteric, conjunctiva are normal. ENT: nares patent. Moist mucous membranes. NECK: Normal range of motion, supple without lymphadenopathy LUNGS: CTAB and equal. No wheezes rales or rhonchi. HEART: Regular rate and rhythm without murmurs ABDOMEN: Soft, mild tenderness to supraumbilical area, small defect felt in abdominal wall, no protruding hernia at this time, normal bowel sounds, no guarding. EXTREMITIES: Normal range of motion, no pitting edema. No cyanosis. BACK: No midline tenderness, no step-off or deformity. No CVA tenderness NEUROLOGICAL: Cranial nerves grossly intact. Normal speech. Normal gait. PSYCH: Normal mood, normal affect. SKIN: Warm, Dry, normal turgor, no rashes or lesions noted Course - Re-evaluation Re-evalutation: 06/18/20 16:21 Patient with what appears to be reducible hernia at this time, patient nontoxic in appearance. Will give short course of pain medication and encourage outpatient follow-up with general surgery for further management. Patient presents with abdominal pain without signs of peritonitis or other life-t hreatening or serious etiology. Patient appears stable for discharge and has been instructed to return immediately if the symptoms worsen in any way. - Vital Signs Vital signs: Temp Pulse Resp BP Pulse Ox 98.2 F 70 16 118/63 99 06/18/20 13:52 06/18/20 13:52 06/18/20 13:52 06/18/20 13:52 06/18/20 13:52 - Laboratory Result Diagrams: 06/18/20 14:38 06/18/20 14:38 Laboratory results interpreted by me: 06/18/20 14:38 Hgb 11.9 L Hct 35.7 L MCV 72 L MCH 23.8 L RDW 21.8 H 06/18/20 16:21 Labs- All tests 24 hr 06/18/20 06/18/20 06/18/20 14:38 14:38 14:38 WBC 7.0 RBC 4.99 Hgb 11.9 L Hct 35.7 L MCV 72 L MCH 23.8 L MCHC 33.2 RDW 21.8 H Plt Count 192 Lymph % (Auto) 30.4 [place] % (Auto) 9.1 Eos % (Auto) 2.0 Baso % (Auto) 0.5 Absolute Neuts (auto) 4.1 Absolute Lymphs (auto) 2.1 Absolute Monos (auto) 0.6 Absolute Eos (auto) 0.1 Absolute Basos (auto) 0.0 Seg Neutrophils % 58.0 Sodium 137.6 Potassium 4.9 Chloride 101 Carbon Dioxide 29 Anion Gap 8 BUN 12 Creatinine 0.78 Est GFR ( Amer) > 60 Est GFR (MDRD) Non-Af > 60 Glucose 92 Calcium 9.1 Total Bilirubin 0.3 Direct Bilirubin 0.3 Neonat Total Bilirubin 0.1 Neonat Direct Bilirubin 0.0 Neonat Indirect Bili 0.1 AST 21 ALT 8 Alkaline Phosphatase 61 Total Protein 7.3 Albumin 4.4 Lipase 236.3 Serum HCG, Qual NEGATIVE Discharge - Discharge Clinical Impression: Hernia Abdominal pain Qualifiers: Abdominal location: unspecified location Qualified Code(s): R10.9 - Unspecified abdominal pain Condition: Stable Disposition: HOME, SELF-CARE Instructions: Abdominal Pain ([facility]), Hernia ([facility]), Oral Narcotic Medication ([facility] ) Additional Instructions: Return immediately for any new or worsening symptoms: Fever, worsening pain, persistent bulge to abdomen, fever, vomiting, blood in stool or any concerning symptoms Followup with your primary care provider, call tomorrow to make a followup appointment Follow up with general surgery for further evaluation of likely abdominal hernia. Prescriptions: Hydrocodone/Acetaminophen [[place] 5-325 mg Tablet] 1 tab PO Q6 PRN #6 tablet PRN Reason: Forms: Return to Work, Restricted Release Referrals: DEBRA HAND MD [Primary Care Provider] - Follow up as needed [facility] [Provider Group] - Follow up in 1 week
== END 2020-06-18 16:33 | disposition home or self-care (01) ==
LOC: ER 13:33
DX: R10.30 Lower abdominal pain, unspecified (principal); R10.33 Periumbilical pain; R11.2 Nausea with vomiting, unspecified; K46.9 Unspecified abdominal hernia without obstruction or gangrene
CPT/HCPCS: 36415; 80053; 83690; 84703; 85025; 99284

== ENCOUNTER 2020-08-18 05:27 | Day surgery (SDC) | payer MEDICAID ==
[2020-07-16 10:15] LABS: HEMATOCRIT 36.2 % (36.0-47.0); HEMOGLOBIN 11.8 g/dL (12.0-15.5); MEAN CORPUSCULAR HEMOGLOBIN 24.1 pg (27.0-33.4); MEAN CORPUSCULAR HGB CONC 32.5 g/dL (32.0-36.0); MEAN CORPUSCULAR VOLUME 74 fl (80-97); PLATELET COUNT 198 10^3/uL (150-450); RED CELL DISTRIBUTION WIDTH 21.3 % (11.5-14.0); WHITE BLOOD COUNT 6.1 10^3/uL (4.0-10.5)
[2020-08-11 10:21] LABS: ANION GAP 10 (5-19); BLOOD UREA NITROGEN 12 mg/dL (7-20); CALCIUM 9.3 mg/dL (8.4-10.2); CARBON DIOXIDE 27 mmol/L (22-30); CHLORIDE 104 mmol/L (98-107); GLUCOSE 106 mg/dL (75-110); POTASSIUM 4.4 mmol/L (3.6-5.0)
[2020-08-11 11:12] LABS: HEMATOCRIT 37.5 % (36.0-47.0); HEMOGLOBIN 12.2 g/dL (12.0-15.5); MEAN CORPUSCULAR HEMOGLOBIN 24.3 pg (27.0-33.4); MEAN CORPUSCULAR HGB CONC 32.4 g/dL (32.0-36.0); MEAN CORPUSCULAR VOLUME 75 fl (80-97); PLATELET COUNT 195 10^3/uL (150-450); RED BLOOD COUNT 5.01 10^6/uL (3.72-5.28); RED CELL DISTRIBUTION WIDTH 19.6 % (11.5-14.0); WHITE BLOOD COUNT 6.7 10^3/uL (4.0-10.5)
[~2020-08-18 05:27] MED LIST: CEFAZOLIN 1 GM/D5W RTU 0 GM/0 ML RTUPB IV ONE; CEFAZOLIN 1 GM/D5W RTU 1 GM/50 ML RTUPB IV ONE; CEFAZOLIN 1 GM/D5W RTU 1 GM/50 ML RTUPB IV PRN; DEXAMETHASONE SOD PHOSPHATE INJ 4 MG/1 ML VIAL ONE; FENTANYL CITRATE INJ/PF 250 MCG/5 ML AMPULE ONE; LACTATED RINGERS 1000 ML IV PRN; LIDOCAINE 0.5% INJ-PF (5 MG/ML) 50 ML SDV INFIL PRN; MIDAZOLAM 2 MG/2 ML INJ ONE; ONDANSETRON HCL INJ/PF 4 MG/2 ML SDV ONE; PROPOFOL INJ 200 MG/20 ML VIAL IV ONE; RINGERS SOLUTION,LACTATED 1,000 ML IV PRN; SUGAMMADEX SODIUM 200 MG/2 ML SDV IV ONE
[2020-08-18] MEDS ORDERED: LIDOCAINE 2% INJ-PF (20 MG/ML) 10 ML AMPUL ONE (06:55)
[2020-08-18] MEDS ORDERED: HYDROMORPHONE HCL INJ/PF 2 MG/ML AMPULE ONE (06:56)
[2020-08-18] MEDS ORDERED: PROPOFOL INJ 200 MG/20 ML VIAL IV ONE (06:56)
[2020-08-18] MEDS ORDERED: FENTANYL CITRATE INJ/PF 100 MCG/2 ML AMPUL ONE (06:56)
[2020-08-18] MEDS ORDERED: MIDAZOLAM 2 MG/2 ML INJ ONE (06:56)
[2020-08-18] MEDS ORDERED: ONDANSETRON HCL INJ/PF 4 MG/2 ML SDV ONE (06:56)
[2020-08-18] MEDS ORDERED: DEXAMETHASONE SOD PHOSPHATE INJ 4 MG/1 ML VIAL ONE (06:56)
[2020-08-18] MEDS ORDERED: BUPIVACAINE HCL 0.25 % INJ/PF (2.5 MG/1 ML) 30 ML VIAL ONE (07:01)
[2020-08-18] MEDS ORDERED: BUPIVACAINE INJ/PF LIPOSOME/PF 266 MG/20 ML SDV ONE (07:02)
[2020-08-18] MEDS ORDERED: OXYCODONE-ACETAMINOPHEN 5-325 MG TABLET PO PRN ×2 (07:38)
[2020-08-18] MEDS ORDERED: MORPHINE SULFATE 10 MG/ML INJ IV PRN (07:38)
[2020-08-18] MEDS ORDERED: DIPHENHYDRAMINE HCL 50 MG/ML VIAL IV PRN (07:38)
[2020-08-18] MEDS ORDERED: FENTANYL CITRATE INJ/PF 100 MCG/2 ML AMPUL IV PRN ×3 (07:38)
[2020-08-18] MEDS ORDERED: MEPERIDINE HCL/PF INJ 25 MG/1 ML DISP.SYRIN IV PRN (07:38)
--- NOTE | 2020-08-18 08:38 | Operative Report ---
Operative Report DATE OF SURGERY: 08/18/20 PREOPERATIVE DIAGNOSIS: Supraumbilical hernia incarcerated retroperitoneal fat POSTOPERATIVE DIAGNOSIS: Same OPERATION: Open umbilical herniorrhaphy with Ventrlex ST 6 cm prosthetic mesh SURGEON: MYLA HOUGH DOLL MAKER: FREDDY JIMENEZ ANESTHESIA: GA TISSUE REMOVED OR ALTERED: None COMPLICATIONS: None ESTIMATED BLOOD LOSS: Scant INTRAOPERATIVE FINDINGS: See below PROCEDURE: The patient was taken to the preop holding area to the main operating room where general anesthesia was induced. The abdomen was exposed, prepped and draped in sterile fashion with Betadine Surgical plan and surgical timeout were conducted. Markings were made on the skin for a supraumbilical open repair. The skin was anesthetized 1% plain again mixed with quarter percent Marcaine. A vertically oriented incision was made with a #10 blade several centimeters above the umbilicus. The length of the incision was approximately 5 cm. Subcutaneous tissue was divided, underlying retroperitoneal fat prolapsing through the hernia defect was identified, and dissected away from the surrounding subcutaneous tissue. The adjacent fascia was cleaned up with electrocautery. The straight of fat was reduced into the retroperitoneal space. The fascial defect was approximately 2 cm. Using a peanut, we swept the retroperitoneal tissue away from the transversalis fascia, creating a retroperitoneal pocket for mesh placement. We brought onto the field a nonexpired Bard Ventralex ST 6 cm mesh. We we placed 4 0 PDS sutures at the 12, 3, 6, 9:00 positions, threading the suture through the anterior abdominal wall, through the ring of the mesh, and then back up through the anterior abdominal wall. We now moistened the mesh, folded, and positioned it through the fascial defect, then unfurled it so that the ring side was facing the fascia, and the smooth, slick side was facing the properitoneal fat. We now brought all for retention sutures up into position, ensuring that the mesh was splayed out smoothly. We now secured the knots at the 12, 3, 6, and 9:00 positions. The midline fascial defect was closed with two #1 PDS sutures in a [id number] fashion. The subcutaneous tissue and skin was reapproximated with 2-0 and 3-0 Vicryl. Skin glue was applied to the skin surface. Bolster dressing applied. Abdominal binder applied. Patient tolerated procedure well, extubated, taken recovery room stable condition. The physician rn first assistant, Ms. Ibanez, provided assistance during this case by: Assisting with retracting tissue, instillation of local anesthesia and closure of skin incisions.
--- NOTE | 2020-08-18 08:44 | Discharge Summary ---
Discharge Summary (SDC) - Discharge Final Diagnosis: Supraumbilical hernia Date of Surgery: 08/18/20 Discharge Date: 08/18/20 Condition: Good Forms: ASU Anesthesia D/C Instruction, Discharge POC-Surgical Service Treatment or Instructions: No heavy lifting, pushing, pulling or bending for 2 weeks; abdominal binder when ambulating. Follow-up with [facility] in 2 weeks. Shower in 48 hours. Prescriptions: Ketorolac Tromethamine [Toradol 10 mg Tablet] 10 mg PO Q6HP PRN #14 tablet PRN Reason: Referrals: MYLA ARMSTRONG MD [ACTIVE STAFF] - Discharge Diet: As Tolerated Discharge Activity: Other - No moderate to heavy lifting, pushing, pulling or bending for 2 weeks; may shower 48 hours; wear abdominal binder when not sleeping
[2020-08-18] MEDS ORDERED: OXYCODONE-ACETAMINOPHEN 5-325 MG TABLET ONE (09:05)
[2020-08-18 10:09] VITALS: BP 125/76
[2020-08-18] MEDS ORDERED: NEOSTIGMINE METHYLSULFATE 10 MG/10 ML VIAL ONE (14:43)
[2020-08-18] MEDS ORDERED: GLYCOPYRROLATE 1 MG/5 ML VIAL ONE (14:43)
[2020-08-18] MEDS ORDERED: KETOROLAC TROMETHAMINE 60 MG/2 ML SDV ONE (14:43)
[2020-08-18] MEDS ORDERED: PHENYLEPHRINE HCL INJ/PF 10 MG/1 ML SDV ONE (14:43)
== END 2020-08-18 10:05 | disposition home or self-care (01) ==
LOC: OROUT 05:27
PROVIDERS: ATTEND Surgery
DX: K43.6 Other and unspecified ventral hernia with obstruction, without gangrene (principal); Z20.828 Contact with and (suspected) exposure to other viral communicable diseases; Z87.891 Personal history of nicotine dependence; Z86.32 Personal history of gestational diabetes
CPT/HCPCS: 36415 ×2; 85027 ×2; 87635 ×2; 81025; 80048; 49561; 49568; J2250; J0690; J1100; J1885; J3010; J2710; J1170; J2370; J2405; J3490 ×3; J2704; C9290; C9803 ×2; C1781